=== PATIENT | female | born 1945 | race Caucasian/White ===

== ENCOUNTER → 2016-07-04 | Outpatient (CLI) | payer OTHER ==
--- NOTE | 2016-07-04 22:23 | DI ---
XR SHOULDER MIN 2VW,07/04/2016 11:50 AM: Clinical History: Left shoulder pain and injury. Previous Exam: None at this facility. Findings: 3 views of the left shoulder are obtained, and demonstrate postsurgical changes consistent with a lef t total shoulder arthroplasty. Degenerative changes of the acromioclavicular joint are noted. The left ribs and lung are unremarkabl e. Impression: Postsurgical changes consistent with a left total shoulder arthroplasty.
== END ==
LOC: RAD 11:45
PROVIDERS: ATTEND Family Medicine
DX: S49.92XA Unspecified injury of left shoulder and upper arm, initial encounter (principal); M19.012 Primary osteoarthritis, left shoulder; Z96.612 Presence of left artificial shoulder joint
CPT/HCPCS: 73030